=== PATIENT | female | born 1945 | race Caucasian/White ===

== ENCOUNTER 2020-09-17 18:19 | Observation (INO) ==
[2020-09-17] MEDS ORDERED: SODIUM CHLORIDE 0.9% 500 ML IV STA (19:15)
[2020-09-17 20:44] LABS: Basophils % 0.3 % (0.0-0.8); Eosinophils # 0.1 10*3/uL (0.0-0.87); Eosinophils % 1.6 % (0.00-10.9); Hematocrit 30.7 VOL% (35.7-47.0); Hemoglobin 10.1 GM/DL (12.0-16.0); Immature Granulocytes % 0.4 %; Immature Granulocytes Absolute 0.03 #; Lymphocytes # 1.2 10*3/uL (1.4-4.0); Lymphocytes % 16.6 % (21.3-54.2); Mean Corpuscular HGB Conc 32.9 GM/DL (32-36); Mean Platelet Volume 10.3 FL (9.6-12.0); Monocytes % 9.6 % (1.7-12.7); Neutrophils % 71.5 % (38.7-73.9); Platelet Count 209 T/CUMM (130-400); Red Cell Distribution Width 13.4 % (9.3-17.3); White Blood Count 7.4 T/CUMM (4-12)
[2020-09-17 20:51] LABS: Bilirubin,Urine Negative (Negative); Blood, Urine Negative (Negative); Glucose,Urine (UA) Negative (Negative); Ketones,Urine 5 mg/dL (Negative); Mucus,Urine Occasional /LPF (Occasional); Nitrite,Urine Negative (Negative); Protein,Urine Negative; RBC,Urine 1 /HPF (0-4); Squamous Epithelial Cell,Urine Occasional /HPF (0-10); Urine Appearance CLEAR (Clear); Urine Color Yellow (Yellow); Urine Specific Gravity 1.013 (1.001-1.035); Urine Urobilinogen < 2.0 EU/DL (0.2-1.0); WBC,Urine 2 /HPF (0-6)
[2020-09-17 21:02] LABS: Ferritin 168.8 ng/ml (8-252)
[2020-09-17 21:11] LABS: Alanine Aminotransferase < 9 U/L (13-56); Albumin 3.4 G/DL (3.4-5.0); Alkaline Phosphatase 110 U/L (45-117); Aspartate Amino Transferase 20 U/L (0-37); Blood Urea Nitrogen 20 MG/DL (7-18); Carbon Dioxide 25 MMOL/L (21-32); Estimated Glom Filtration Rate 70 ML/MIN; Glucose 95 MG/DL (74-106); Osmolality,Calculated 290.7 MOS/KG (273-304); Potassium 3.1 MMOL/L (3.5-5.1); Sodium 145 MMOL/L (136-145); Total Protein 6.7 G/DL (6.4-8.3); Troponin I < 0.015 NG/ML (0.00-0.045)
[2020-09-17 21:13] LABS: Barbiturates Screen,Urine Negative (Negative); Benzodiazepines Screen,Urine Negative (Negative); Cannabinoid Screen,Urine Negative (Negative); Opiate Screen,Urine Negative (Negative); Phencyclidine Screen,Urine Negative (Negative)
[2020-09-17] MEDS ORDERED: POTASSIUM CHLORIDE 20 MEQ TABLET PO STA (21:18)
[2020-09-17 21:38] LABS: PT Patient Result 11.1 SECS (9.8-11.9)
[2020-09-17 22:07] LABS: Sedimentation Rate-Westergren 29 MM/HR (0-30)
[2020-09-17] MEDS ORDERED: ENOXAPARIN 100 MG/ML SYRINGE SUBCUT STA (22:15)
[2020-09-18] MEDS ORDERED: DEXTROSE 50% 25 GM/50 ML VIAL IV PRN (02:23)
[2020-09-18] MEDS ORDERED: GLUCAGON 1 MG VIAL IM PRN (02:23)
[2020-09-18] MEDS ORDERED: ACETAMINOPHEN 325 MG TABLET PO PRN (02:29)
[2020-09-18] MEDS ORDERED: ONDANSETRON 4 MG/2 ML VIAL IV PRN (02:29)
[2020-09-18] MEDS ORDERED: DOCUSATE SODIUM 100 MG CAPSULE PO PRN (02:29)
[2020-09-18] MEDS ORDERED: POTASSIUM CHLORIDE 20 MEQ TABLET PO PRN (02:35)
[2020-09-18 06:27] LABS: Basophils % 0.7 % (0.0-0.8); Eosinophils # 0.2 10*3/uL (0.0-0.87); Eosinophils % 4.1 % (0.00-10.9); Hematocrit 30.2 VOL% (35.7-47.0); Immature Granulocytes % 0.2 %; Immature Granulocytes Absolute 0.01 #; Lymphocytes # 1.4 10*3/uL (1.4-4.0); Mean Corpuscular HGB Conc 33.1 GM/DL (32-36); Mean Corpuscular Volume 93.8 FL (87-102); Mean Platelet Volume 10.3 FL (9.6-12.0); Monocytes % 8.9 % (1.7-12.7); Neutrophils % 60.1 % (38.7-73.9); Platelet Count 203 T/CUMM (130-400); Red Blood Count 3.22 MC/CUMM (3.8-5.5); Red Cell Distribution Width 13.4 % (9.3-17.3); White Blood Count 5.4 T/CUMM (4-12)
[2020-09-18 06:58] LABS: Alanine Aminotransferase < 6 U/L (13-56); Albumin 3.2 G/DL (3.4-5.0); Alkaline Phosphatase 102 U/L (45-117); Aspartate Amino Transferase 17 U/L (0-37); Blood Urea Nitrogen 15 MG/DL (7-18); Carbon Dioxide 26 MMOL/L (21-32); Estimated Glom Filtration Rate 82 ML/MIN; Glucose 88 MG/DL (74-106); HDL Cholesterol 55 MG/DL (40-60); Osmolality,Calculated 285.8 MOS/KG (273-304); Potassium 3.4 MMOL/L (3.5-5.1); Risk Ratio 3.05; Sodium 144 MMOL/L (136-145); Total Protein 6.3 G/DL (6.4-8.3); Triglycerides 89 MG/DL (2-150); VLDL CHOLESTEROL 17.8 MG/DL
[2020-09-18] MEDS ORDERED: MAGNESIUM HYDROXIDE SUSP 30 ML UDCUP PO STA (11:36)
[2020-09-18] MEDS ORDERED: MAGNESIUM CITRATE 300 ML BOTTLE PO STA (12:55)
[2020-09-18 14:16] VITALS: BP 137/87
[2020-09-18] MEDS ORDERED: ENOXAPARIN 40 MG/0.4 ML SYRINGE SUBCUT SCH (21:00)
== END 2020-09-18 13:41 | disposition home health service (06) ==
LOC: EDBD → EDUNIT# → N.ED 18:19 → N.EDINP 18:19
PROVIDERS: ADMIT Internal Medicine; ATTEND Internal Medicine

== ENCOUNTER 2020-12-31 17:44 | Inpatient (IN) ==
[2020-12-31 18:24] LABS: Basophils # 0.1 10*3/uL (0.0-0.2); Basophils % 0.5 % (0.0-0.8); Eosinophils # 0.1 10*3/uL (0.0-0.87); Eosinophils % 1.2 % (0.00-10.9); Hemoglobin 11.5 GM/DL (12.0-16.0); Immature Granulocytes % 0.3 %; Immature Granulocytes Absolute 0.03 #; Lymphocytes # 1.5 10*3/uL (1.4-4.0); Mean Corpuscular HGB Conc 31.9 GM/DL (32-36); Mean Platelet Volume 9.7 FL (9.6-12.0); Monocytes % 8.1 % (1.7-12.7); Neutrophils % 73.9 % (38.7-73.9); Platelet Count 382 T/CUMM (130-400); Red Blood Count 3.83 MC/CUMM (3.8-5.5); Red Cell Distribution Width 12.6 % (9.3-17.3); White Blood Count 9.3 T/CUMM (4-12)
[2020-12-31 18:37] LABS: Alanine Aminotransferase < 6 U/L (13-56); Albumin 3.4 G/DL (3.4-5.0); Alkaline Phosphatase 99 U/L (45-117); Amylase 42 U/L (25-115); Aspartate Amino Transferase 14 U/L (0-37); Blood Urea Nitrogen 26 MG/DL (7-18); Calcium 9.7 MG/DL (8.5-10.1); Carbon Dioxide 29 MMOL/L (21-32); Estimated Glom Filtration Rate 53 ML/MIN; Glucose 103 MG/DL (74-106); Osmolality,Calculated 287.1 MOS/KG (273-304); Potassium 3.6 MMOL/L (3.5-5.1); Sodium 142 MMOL/L (136-145); Total Protein 7.1 G/DL (6.4-8.2)
[2020-12-31 19:05] LABS: Bilirubin,Urine Negative (Negative); Blood, Urine Negative (Negative); Glucose,Urine (UA) Negative (Negative); Hyaline Casts,Urine 5 /LPF (0-3); Ketones,Urine 5 mg/dL (Negative); Mucus,Urine Few /LPF (Occasional); Nitrite,Urine Negative (Negative); Protein,Urine Negative; RBC,Urine 2 /HPF (0-4); Squamous Epithelial Cell,Urine Occasional /HPF (0-10); Urine Appearance CLEAR (Clear); Urine Color Yellow (Yellow); Urine Specific Gravity 1.023 (1.001-1.035); WBC,Urine 2 /HPF (0-6)
[2020-12-31] MEDS ORDERED: PIPERACILLIN/TAZOBACTAM 3,375 MG in SODIUM CHLORIDE 0.9% 100 ML IV STA (19:46)
[2020-12-31] MEDS ORDERED: SIMETHICONE CHEW 125 MG TABLET PO PRN (20:36)
[2020-12-31] MEDS ORDERED: hydrALAZINE 20 MG/1 ML VIAL IV PRN (20:36)
[2020-12-31] MEDS ORDERED: ONDANSETRON 4 MG/2 ML VIAL IV PRN (20:36)
[2020-12-31] MEDS ORDERED: ACETAMINOPHEN 325 MG TABLET PO PRN (20:36)
[2020-12-31] MEDS ORDERED: LORazepam 2 MG/1 ML VIAL IV STA (20:39)
[2020-12-31] MEDS ORDERED: LORazepam 2 MG/1 ML VIAL ONE (20:40)
[2020-12-31] MEDS: SODIUM CHLORIDE 0.45% 1,000 ML IV SCH (22:31)
[2021-01-01] MEDS: RASAGILINE 0.5 MG TABLET PO SCH ×2 (00:01→21:16)
[2021-01-01] MEDS: DOCUSATE SODIUM 100 MG CAPSULE PO SCH ×3 (00:02→21:18)
[2021-01-01] MEDS: CARBIDOPA/LEVODOPA 25-100 MG TABLET PO SCH ×4 (00:02→21:16)
[2021-01-01] MEDS: ENOXAPARIN 40 MG/0.4 ML SYRINGE SUBCUT SCH ×2 (00:08→21:15)
[2021-01-01] MEDS: PIPERACILLIN/TAZOBACTAM 3,375 MG in SODIUM CHLORIDE 0.9% 100 ML IV SCH ×3 (04:38→21:21)
[2021-01-01 05:44] LABS: Basophils % 0.6 % (0.0-0.8); Eosinophils # 0.2 10*3/uL (0.0-0.87); Eosinophils % 2.1 % (0.00-10.9); Hematocrit 33.8 VOL% (35.7-47.0); Hemoglobin 11.4 GM/DL (12.0-16.0); Immature Granulocytes % 0.3 %; Immature Granulocytes Absolute 0.02 #; Lymphocytes # 1.4 10*3/uL (1.4-4.0); Lymphocytes % 20.6 % (21.3-54.2); Mean Corpuscular HGB Conc 33.7 GM/DL (32-36); Mean Corpuscular Volume 91.6 FL (87-102); Mean Platelet Volume 9.4 FL (9.6-12.0); Monocytes % 10.4 % (1.7-12.7); Platelet Count 333 T/CUMM (130-400); Red Blood Count 3.69 MC/CUMM (3.8-5.5); Red Cell Distribution Width 12.7 % (9.3-17.3)
[2021-01-01 06:09] LABS: Alanine Aminotransferase < 6 U/L (13-56); Albumin 3.1 G/DL (3.4-5.0); Alkaline Phosphatase 91 U/L (45-117); Aspartate Amino Transferase 14 U/L (0-37); Blood Urea Nitrogen 18 MG/DL (7-18); Carbon Dioxide 27 MMOL/L (21-32); Estimated Glom Filtration Rate 69 ML/MIN; Glucose 100 MG/DL (74-106); Osmolality,Calculated 282.3 MOS/KG (273-304); Potassium 3.6 MMOL/L (3.5-5.1); Sodium 141 MMOL/L (136-145); Total Protein 6.5 G/DL (6.4-8.2)
[2021-01-01] MEDS: OLANZapine 2.5 MG TABLET PO SCH ×3 (08:51→21:21)
[2021-01-01] MEDS: MEGESTROL 40 MG TABLET PO SCH (08:51)
[2021-01-01] MEDS: PANTOPRAZOLE 40 MG TABLET PO SCH (08:51)
[2021-01-01] MEDS ORDERED: NON-FORMULARY MEDICATION (Linaclotide [Linzess] 72 mcg Capsule) PO SCH (09:00)
[2021-01-01] MEDS: DONEPEZIL 10 MG TABLET PO SCH (12:18)
[2021-01-01] MEDS: SODIUM CHLORIDE 0.45% 1,000 ML IV SCH ×2 (12:21→21:16)
[2021-01-01] MEDS: MULTIVITAMIN (BEROCCA) TABLET PO SCH (17:05)
[2021-01-01] MEDS ORDERED: CARBIDOPA LEVODOPA PO SCH (21:00)
[2021-01-02] MEDS: PIPERACILLIN/TAZOBACTAM 3,375 MG in SODIUM CHLORIDE 0.9% 100 ML IV SCH ×2 (04:45→14:47)
[2021-01-02] MEDS: SODIUM CHLORIDE 0.45% 1,000 ML IV SCH ×2 (04:45→18:14)
[2021-01-02] MEDS: DOCUSATE SODIUM 100 MG CAPSULE PO SCH (08:49)
[2021-01-02] MEDS: PANTOPRAZOLE 40 MG TABLET PO SCH (08:49)
[2021-01-02] MEDS: CARBIDOPA/LEVODOPA 25-100 MG TABLET PO SCH ×3 (08:50→17:22)
[2021-01-02] MEDS: MEGESTROL 40 MG TABLET PO SCH (08:50)
[2021-01-02] MEDS: OLANZapine 2.5 MG TABLET PO SCH (08:50)
[2021-01-02] MEDS: DONEPEZIL 10 MG TABLET PO SCH (14:47)
[2021-01-02 16:00] VITALS: BP 137/68
[2021-01-02] MEDS: MULTIVITAMIN (BEROCCA) TABLET PO SCH (17:22)
== END 2021-01-02 19:32 | disposition home or self-care (01) | DRG 392 ==
LOC: EDUNIT# → EDBD → N.ED 17:44 → N.EDINP 21:14 → N.5E 21:21
PROVIDERS: ADMIT Internal Medicine; ATTEND Internal Medicine

== ENCOUNTER 2021-03-29 18:53 | Inpatient (IN) ==
[2021-03-29] MEDS ORDERED: ONDANSETRON 4 MG/2 ML VIAL ONE (19:22)
[2021-03-29] MEDS ORDERED: HYDROmorphone 2 MG/1 ML VIAL ONE (19:23)
[2021-03-29] MEDS ORDERED: SODIUM CHLORIDE 0.9% 500 ML IV STA (19:29)
[2021-03-29] MEDS ORDERED: HYDROmorphone 2 MG/1 ML VIAL IV STA ×2 (19:29→22:09)
[2021-03-29] MEDS ORDERED: ONDANSETRON 4 MG/2 ML VIAL IV STA (19:29)
[2021-03-29 19:42] LABS: Basophils # 0.1 10*3/uL (0.0-0.2); Basophils % 0.4 % (0.0-0.8); Eosinophils # 0.2 10*3/uL (0.0-0.87); Eosinophils % 1.2 % (0.00-10.9); Hematocrit 36.3 VOL% (35.7-47.0); Hemoglobin 11.9 GM/DL (12.0-16.0); Immature Granulocytes % 0.7 %; Immature Granulocytes Absolute 0.09 #; Lymphocytes # 2.4 10*3/uL (1.4-4.0); Lymphocytes % 19.2 % (21.3-54.2); Mean Corpuscular HGB Conc 32.8 GM/DL (32-36); Mean Corpuscular Volume 93.3 FL (87-102); Mean Platelet Volume 10.2 FL (9.6-12.0); Monocytes % 9.5 % (1.7-12.7); Platelet Count 247 T/CUMM (130-400); Red Blood Count 3.89 MC/CUMM (3.8-5.5); Red Cell Distribution Width 13.1 % (9.3-17.3); White Blood Count 12.5 T/CUMM (4-12)
[2021-03-29 20:05] LABS: Alanine Aminotransferase 10 U/L (13-56); Albumin 3.7 G/DL (3.4-5.0); Alkaline Phosphatase 100 U/L (45-117); Aspartate Amino Transferase 15 U/L (0-37); Bilirubin,Total < 0.39 MG/DL (0.20-1.00); Blood Urea Nitrogen 28 MG/DL (7-18); Carbon Dioxide 24 MMOL/L (21-32); Estimated Glom Filtration Rate 46 ML/MIN; Glucose 99 MG/DL (74-106); Osmolality,Calculated 293.7 MOS/KG (273-304); Potassium 3.6 MMOL/L (3.5-5.1); Sodium 145 MMOL/L (136-145); Total Protein 6.8 G/DL (6.4-8.2)
[2021-03-29 20:21] LABS: PT Patient Result 10.9 SECS (10.5-12.0)
[2021-03-29 20:32] LABS: Amorphous Crystals,Urine Occasional /HPF (Few); Bilirubin,Urine Negative (Negative); Blood, Urine Negative (Negative); Glucose,Urine (UA) Negative (Negative); Granular Casts,Urine 7 /LPF (0-1); Hyaline Casts,Urine 17 /LPF (0-3); Ketones,Urine 5 mg/dL (Negative); Mucus,Urine Few /LPF (Occasional); Nitrite,Urine Negative (Negative); Protein,Urine 100 MG/DL; Urine Appearance CLOUDY (Clear); Urine Color Amber (Yellow)
[2021-03-29] MEDS ORDERED: LORazepam 2 MG/1 ML VIAL ONE (22:04)
[2021-03-29] MEDS ORDERED: LORazepam 2 MG/1 ML VIAL IV STA (22:09)
[2021-03-29] MEDS ORDERED: ONDANSETRON 4 MG/2 ML VIAL IV PRN (22:14)
[2021-03-29] MEDS ORDERED: GLUCAGON 1 MG VIAL IM PRN (22:14)
[2021-03-29] MEDS ORDERED: DEXTROSE 50% 25 GM/50 ML VIAL IV PRN (22:14)
[2021-03-29] MEDS ORDERED: DICYCLOMINE 20 MG TABLET PO PRN (22:19)
[2021-03-29] MEDS ORDERED: HYDROmorphone 2 MG/1 ML VIAL IV PRN (22:21)
[2021-03-30] MEDS: DONEPEZIL 10 MG TABLET PO SCH ×2 (02:50→21:19)
[2021-03-30] MEDS ORDERED: NALOXONE 0.4 MG/ML VIAL ONE (03:56)
[2021-03-30] MEDS ORDERED: NALOXONE 0.4 MG/ML VIAL IV PRN (03:56)
[2021-03-30 06:15] LABS: Basophils % 0.3 % (0.0-0.8); Eosinophils % 0.2 % (0.00-10.9); Hematocrit 31.9 VOL% (35.7-47.0); Hemoglobin 10.7 GM/DL (12.0-16.0); Immature Granulocytes % 0.4 %; Immature Granulocytes Absolute 0.04 #; Lymphocytes % 10.4 % (21.3-54.2); Mean Corpuscular HGB Conc 33.5 GM/DL (32-36); Mean Corpuscular Volume 92.2 FL (87-102); Mean Platelet Volume 10.4 FL (9.6-12.0); Monocytes % 9.3 % (1.7-12.7); Neutrophils % 79.4 % (38.7-73.9); Platelet Count 187 T/CUMM (130-400); Red Blood Count 3.46 MC/CUMM (3.8-5.5); Red Cell Distribution Width 13.1 % (9.3-17.3); White Blood Count 9.6 T/CUMM (4-12)
[2021-03-30] MEDS ORDERED: fentaNYL 100 MCG/2 ML VIAL ONE (06:32)
[2021-03-30] MEDS ORDERED: MIDAZOLAM 2 MG/2 ML VIAL ONE (06:32)
[2021-03-30 06:35] LABS: Albumin 3.4 G/DL (3.4-5.0); Bilirubin,Total 0.7 MG/DL (0.20-1.00); Calcium 8.8 MG/DL (8.5-10.1); Osmolality,Calculated 294.8 MOS/KG (273-304); Total Protein 6.1 G/DL (6.4-8.2)
[2021-03-30] MEDS ORDERED: DEXAMETHASONE 4 MG/1 ML VIAL ONE (06:43)
[2021-03-30] MEDS ORDERED: LIDOCAINE 1% 5 ML VIAL ONE (06:43)
[2021-03-30] MEDS ORDERED: ROPIVACAINE 0.5% 30 ML VIAL ONE (06:43)
[2021-03-30] MEDS ORDERED: FAMOTIDINE 20 MG/2 ML VIAL IV ONE (07:21)
[2021-03-30] MEDS: CARBIDOPA/LEVODOPA 25-100 MG TABLET PO SCH ×3 (07:47→17:45)
[2021-03-30] MEDS ORDERED: LACTATED RINGERS 1,000 ML IV SCH (08:00)
[2021-03-30] MEDS ORDERED: SUCCINYLCHOLINE 200 MG/10 ML VIAL ONE (08:14)
[2021-03-30] MEDS ORDERED: PHENYLEPHRINE 1 MG/10 ML SYRINGE IV ONE (08:14)
[2021-03-30] MEDS ORDERED: propofoL 200 MG/20 ML VIAL IV ONE (08:14)
[2021-03-30] MEDS ORDERED: ETOMIDATE 40 MG/20 ML VIAL IV ONE (08:14)
[2021-03-30] MEDS ORDERED: ROCURONIUM 50 MG/5 ML VIAL IV ONE (08:14)
[2021-03-30] MEDS ORDERED: SEVOFLURANE 1 UNIT/15 MINUTE INH ONE (08:14)
[2021-03-30] MEDS ORDERED: LIDOCAINE 2% 5 ML VIAL ONE (08:14)
[2021-03-30] MEDS ORDERED: ceFAZolin 1,000 MG VIAL ONE (08:19)
[2021-03-30] MEDS: CYANOCOBALAMIN 500 MCG TABLET PO SCH (08:30)
[2021-03-30] MEDS: COENZYME Q10 100 MG CAPSULE PO SCH ×2 (08:30→21:19)
[2021-03-30] MEDS: MULTIVITAMIN (CENTRUM) TABLET PO SCH (08:30)
[2021-03-30] MEDS: MEGESTROL 40 MG TABLET PO SCH ×2 (08:30→21:19)
[2021-03-30] MEDS: LACTULOSE 20 GM/30 ML UDCUP PO SCH ×3 (08:30→21:55)
[2021-03-30] MEDS ORDERED: GLYCOPYRROLATE 0.4 MG/2 ML VIAL ONE (08:45)
[2021-03-30] MEDS ORDERED: NEOSTIGMINE 10 MG/10 ML VIAL ONE (08:45)
[2021-03-30] MEDS ORDERED: diphenhydrAMINE CAP 25 MG CAPSULE PO PRN (08:59)
[2021-03-30] MEDS ORDERED: MAGNESIUM HYDROXIDE SUSP 30 ML UDCUP PO PRN (08:59)
[2021-03-30] MEDS ORDERED: BISACODYL 10 MG SUPP RECTAL PRN (08:59)
[2021-03-30] MEDS ORDERED: LIDOCAINE 5% PATCH TRANSDERM PRN (09:02)
[2021-03-30] MEDS: RASAGILINE 0.5 MG TABLET PO SCH (11:51)
[2021-03-30] MEDS: MULTIVITAMIN (BEROCCA) TABLET PO SCH (11:52)
[2021-03-30] MEDS: Pimavanserin [Nuplazid] 34 mg capsule PO SCH (11:52)
[2021-03-30] MEDS ORDERED: PYRIDOXINE PO SCH (16:00)
[2021-03-30] MEDS ORDERED: FOLIC ACID PO SCH (16:00)
[2021-03-30] MEDS ORDERED: CYANOCOBALAMIN PO SCH (16:00)
[2021-03-30] MEDS: LORazepam 2 MG/1 ML VIAL IV PRN ×2 (17:43→23:17)
[2021-03-30] MEDS ORDERED: CARBIDOPA/LEVODOPA CR 50-200 MG TABLET PO SCH (21:00)
[2021-03-31] MEDS: HYDROmorphone 2 MG/1 ML VIAL IV PRN ×2 (00:51→06:54)
[2021-03-31] MEDS: ACETAMINOPHEN 325 MG TABLET PO PRN ×2 (03:42→21:09)
[2021-03-31] MEDS: KETOROLAC 15 MG/1 ML VIAL IV SCH ×4 (05:04→23:10)
[2021-03-31 05:51] LABS: Basophils % 0.2 % (0.0-0.8); Hemoglobin 9.5 GM/DL (12.0-16.0); Immature Granulocytes % 0.4 %; Immature Granulocytes Absolute 0.05 #; Lymphocytes # 1.1 10*3/uL (1.4-4.0); Lymphocytes % 9.8 % (21.3-54.2); Mean Corpuscular HGB Conc 32.8 GM/DL (32-36); Mean Corpuscular Volume 93.2 FL (87-102); Mean Platelet Volume 11.1 FL (9.6-12.0); Monocytes % 8.5 % (1.7-12.7); Neutrophils % 81.1 % (38.7-73.9); Platelet Count 157 T/CUMM (130-400); Red Blood Count 3.11 MC/CUMM (3.8-5.5); Red Cell Distribution Width 13.2 % (9.3-17.3); White Blood Count 11.2 T/CUMM (4-12)
[2021-03-31 06:20] LABS: Calcium 8.8 MG/DL (8.5-10.1); Osmolality,Calculated 285.4 MOS/KG (273-304)
[2021-03-31] MEDS: FONDAPARINUX 2.5 MG/0.5 ML SYRINGE SUBCUT SCH (06:38)
[2021-03-31] MEDS: CARBIDOPA/LEVODOPA 25-100 MG TABLET PO SCH ×4 (08:27→16:19)
[2021-03-31] MEDS: LACTULOSE 20 GM/30 ML UDCUP PO SCH ×2 (10:35→21:08)
[2021-03-31] MEDS: MULTIVITAMIN (CENTRUM) TABLET PO SCH (10:35)
[2021-03-31] MEDS: MEGESTROL 40 MG TABLET PO SCH ×2 (10:35→21:07)
[2021-03-31] MEDS: COENZYME Q10 100 MG CAPSULE PO SCH ×2 (10:35→21:07)
[2021-03-31] MEDS: PANTOPRAZOLE 40 MG TABLET PO SCH (10:35)
[2021-03-31] MEDS: MULTIVITAMIN (BEROCCA) TABLET PO SCH (10:35)
[2021-03-31] MEDS: CYANOCOBALAMIN 500 MCG TABLET PO SCH (10:35)
[2021-03-31] MEDS: Pimavanserin [Nuplazid] 34 mg capsule PO SCH (10:39)
[2021-03-31] MEDS: RASAGILINE 0.5 MG TABLET PO SCH (10:51)
[2021-03-31] MEDS ORDERED: HYDROmorphone 2 MG/1 ML VIAL IV PRN (11:26)
[2021-03-31] MEDS: ALBUTEROL/IPRATROPIUM 3 ML NEB RESP TX SCH (19:09)
[2021-03-31] MEDS: DONEPEZIL 10 MG TABLET PO SCH (21:07)
[2021-04-01] MEDS: LORazepam 2 MG/1 ML VIAL IV PRN (00:14)
[2021-04-01] MEDS: ALBUTEROL/IPRATROPIUM 3 ML NEB RESP TX SCH ×4 (00:44→19:16)
[2021-04-01] MEDS: FONDAPARINUX 2.5 MG/0.5 ML SYRINGE SUBCUT SCH (05:03)
[2021-04-01] MEDS: KETOROLAC 15 MG/1 ML VIAL IV SCH ×4 (05:07→23:17)
[2021-04-01] MEDS: CARBIDOPA/LEVODOPA 25-100 MG TABLET PO SCH ×3 (06:07→15:49)
[2021-04-01 06:43] LABS: Basophils % 0.4 % (0.0-0.8); Eosinophils # 0.1 10*3/uL (0.0-0.87); Eosinophils % 1.1 % (0.00-10.9); Hematocrit 24.1 VOL% (35.7-47.0); Hemoglobin 7.7 GM/DL (12.0-16.0); Immature Granulocytes % 0.5 %; Immature Granulocytes Absolute 0.04 #; Lymphocytes % 12.7 % (21.3-54.2); Mean Corpuscular Volume 94.9 FL (87-102); Mean Platelet Volume 11.1 FL (9.6-12.0); Monocytes % 10.5 % (1.7-12.7); Neutrophils % 74.8 % (38.7-73.9); Platelet Count 150 T/CUMM (130-400); Red Blood Count 2.54 MC/CUMM (3.8-5.5); Red Cell Distribution Width 13.4 % (9.3-17.3); White Blood Count 8.2 T/CUMM (4-12)
[2021-04-01 07:56] LABS: Osmolality,Calculated 293.1 MOS/KG (273-304); Potassium 3.8 MMOL/L (3.5-5.1)
[2021-04-01] MEDS: MULTIVITAMIN (BEROCCA) TABLET PO SCH (10:31)
[2021-04-01] MEDS: CYANOCOBALAMIN 500 MCG TABLET PO SCH (10:32)
[2021-04-01] MEDS: COENZYME Q10 100 MG CAPSULE PO SCH ×2 (10:32→20:00)
[2021-04-01] MEDS: PANTOPRAZOLE 40 MG TABLET PO SCH (10:32)
[2021-04-01] MEDS: LACTULOSE 20 GM/30 ML UDCUP PO SCH ×2 (10:32→20:00)
[2021-04-01] MEDS: MEGESTROL 40 MG TABLET PO SCH ×2 (10:32→20:00)
[2021-04-01] MEDS: MULTIVITAMIN (CENTRUM) TABLET PO SCH (10:32)
[2021-04-01] MEDS: RASAGILINE 0.5 MG TABLET PO SCH (10:44)
[2021-04-01] MEDS: Pimavanserin [Nuplazid] 34 mg capsule PO SCH (10:44)
[2021-04-01] MEDS: SODIUM CHLORIDE 0.9% 1,000 ML IV SCH (11:35)
[2021-04-01] MEDS ORDERED: SODIUM CHLORIDE 0.9% 1,000 ML IV PRN (12:07)
[2021-04-01 12:23] LABS: % Iron Saturation 7.6 % (18-50)
[2021-04-01 12:33] LABS: Folate > 24.00 NG/ML (5.38-24.0); Vitamin B12 > 2000 PG/ML (211-911)
[2021-04-01] MEDS ORDERED: ACETAMINOPHEN 325 MG TABLET PO PRN (19:44)
[2021-04-01 19:54] LABS: Hematocrit 25.3 VOL% (35.7-47.0); Hemoglobin 8.3 GM/DL (12.0-16.0)
[2021-04-01] MEDS: DONEPEZIL 10 MG TABLET PO SCH (20:00)
[2021-04-02] MEDS: ALBUTEROL/IPRATROPIUM 3 ML NEB RESP TX SCH ×3 (00:44→13:30)
[2021-04-02 05:42] LABS: Basophils % 0.2 % (0.0-0.8); Eosinophils % 0.4 % (0.00-10.9); Hematocrit 25.5 VOL% (35.7-47.0); Hemoglobin 8.3 GM/DL (12.0-16.0); Immature Granulocytes % 0.3 %; Immature Granulocytes Absolute 0.03 #; Lymphocytes % 10.8 % (21.3-54.2); Mean Corpuscular HGB Conc 32.5 GM/DL (32-36); Mean Corpuscular Volume 92.1 FL (87-102); Mean Platelet Volume 10.8 FL (9.6-12.0); Monocytes % 7.8 % (1.7-12.7); Neutrophils % 80.5 % (38.7-73.9); Platelet Count 132 T/CUMM (130-400); Red Blood Count 2.77 MC/CUMM (3.8-5.5); Red Cell Distribution Width 14.3 % (9.3-17.3)
[2021-04-02 06:04] LABS: Calcium 8.5 MG/DL (8.5-10.1); Osmolality,Calculated 299.4 MOS/KG (273-304); Potassium 3.9 MMOL/L (3.5-5.1)
[2021-04-02 06:05] LABS: Hypochromasia Slight; Microcytosis 1+; Ovalocytes Slight
[2021-04-02 06:06] LABS: Platelet Estimate Adequate
[2021-04-02] MEDS: SODIUM CHLORIDE 0.9% 1,000 ML IV SCH ×2 (06:20→15:30)
[2021-04-02] MEDS: KETOROLAC 15 MG/1 ML VIAL IV SCH ×3 (06:26→17:04)
[2021-04-02] MEDS: CARBIDOPA/LEVODOPA 25-100 MG TABLET PO SCH ×3 (07:33→16:09)
[2021-04-02] MEDS: COENZYME Q10 100 MG CAPSULE PO SCH (09:25)
[2021-04-02] MEDS: PANTOPRAZOLE 40 MG TABLET PO SCH (09:25)
[2021-04-02] MEDS: LACTULOSE 20 GM/30 ML UDCUP PO SCH (09:26)
[2021-04-02] MEDS: MEGESTROL 40 MG TABLET PO SCH (09:26)
[2021-04-02] MEDS: CYANOCOBALAMIN 500 MCG TABLET PO SCH (09:26)
[2021-04-02] MEDS: MULTIVITAMIN (BEROCCA) TABLET PO SCH (09:26)
[2021-04-02] MEDS: MULTIVITAMIN (CENTRUM) TABLET PO SCH (09:26)
[2021-04-02] MEDS ORDERED: TUBERCULIN SKIN TEST 0.1 ML SYRINGE INTRADERM ONE (10:21)
[2021-04-02] MEDS: Pimavanserin [Nuplazid] 34 mg capsule PO SCH (11:33)
[2021-04-02] MEDS: RASAGILINE 0.5 MG TABLET PO SCH (11:33)
[2021-04-02 16:02] VITALS: BP 152/76
[2021-04-02] MEDS ORDERED: CARBIDOPA/LEVODOPA CR 25-100 MG TABLET PO SCH (21:00)
== END 2021-04-02 18:19 | disposition swing bed (61) | DRG 481 ==
LOC: EDBD → EDUNIT# → N.ED 18:53 → SUATTDRO 22:14 → N.EDINP 22:14 → N.3E 03-30 02:39 → N.EDINP 03-30 02:45
PROVIDERS: ADMIT Internal Medicine; ATTEND Internal Medicine

== ENCOUNTER 2021-04-03 14:06 | Inpatient (IN) ==
[2021-04-03] MEDS ORDERED: PIPERACILLIN/TAZOBACTAM 3,375 MG in SODIUM CHLORIDE 0.9% 100 ML IV STA (14:46)
[2021-04-03] MEDS ORDERED: DEXTROSE 50% 25 GM/50 ML VIAL IV PRN (15:44)
[2021-04-03] MEDS ORDERED: GLUCAGON 1 MG VIAL IM PRN (15:44)
[2021-04-03 15:51] LABS: ABG HCO3 21.1 MMOL/L (20-26); ABG Oxygen Saturation 95.2 % (95-100); ABG PCO2 54.3 MM HG (35-48); ABG PH 7.248 (7.35-7.45); ABG PO2 92.4 MM HG (80-95); ABG TCO2 22.2 MMOL/L (23-27)
[2021-04-03 16:28] LABS: Basophils # 0.1 10*3/uL (0.0-0.2); Basophils % 0.3 % (0.0-0.8); Eosinophils # 0.1 10*3/uL (0.0-0.87); Eosinophils % 0.5 % (0.00-10.9); Hematocrit 31.4 VOL% (35.7-47.0); Immature Granulocytes % 0.5 %; Immature Granulocytes Absolute 0.09 #; Lymphocytes # 2.5 10*3/uL (1.4-4.0); Lymphocytes % 12.6 % (21.3-54.2); Mean Corpuscular HGB Conc 31.8 GM/DL (32-36); Mean Corpuscular Volume 96.3 FL (87-102); Mean Platelet Volume 10.4 FL (9.6-12.0); Neutrophils % 77.1 % (38.7-73.9); Platelet Count 262 T/CUMM (130-400); Red Blood Count 3.26 MC/CUMM (3.8-5.5); Red Cell Distribution Width 14.1 % (9.3-17.3); White Blood Count 19.5 T/CUMM (4-12)
[2021-04-03 16:47] LABS: Alanine Aminotransferase < 6 U/L (13-56); Albumin 3.4 G/DL (3.4-5.0); Alkaline Phosphatase 88 U/L (45-117); Aspartate Amino Transferase 22 U/L (0-37); Blood Urea Nitrogen 27 MG/DL (7-18); Calcium 9.3 MG/DL (8.5-10.1); Carbon Dioxide 25 MMOL/L (21-32); Estimated Glom Filtration Rate 48 ML/MIN; Glucose 140 MG/DL (74-106); Osmolality,Calculated 289.1 MOS/KG (273-304); Potassium 4.2 MMOL/L (3.5-5.1); Sodium 142 MMOL/L (136-145); Total Protein 7.1 G/DL (6.4-8.2)
[2021-04-03] MEDS ORDERED: KETOROLAC 30 MG/1 ML VIAL ONE (19:19)
[2021-04-03] MEDS ORDERED: KETOROLAC 30 MG/1 ML VIAL IV STA (19:43)
[2021-04-03] MEDS: ALBUTEROL/IPRATROPIUM 3 ML NEB RESP TX SCH (19:58)
[2021-04-03] MEDS ORDERED: CARBIDOPA/LEVODOPA CR 50-200 MG TABLET PO SCH (21:00)
[2021-04-03] MEDS: DONEPEZIL 10 MG TABLET PO SCH (22:28)
[2021-04-03] MEDS: LACTULOSE 20 GM/30 ML UDCUP PO SCH (22:29)
[2021-04-03] MEDS: MEGESTROL 40 MG TABLET PO SCH (22:29)
[2021-04-03] MEDS: CARBIDOPA/LEVODOPA CR 25-100 MG TABLET PO SCH (22:29)
[2021-04-03] MEDS: PIPERACILLIN/TAZOBACTAM 3,375 MG in SODIUM CHLORIDE 0.9% 100 ML IV SCH (23:00)
[2021-04-03] MEDS: ENOXAPARIN 40 MG/0.4 ML SYRINGE SUBCUT SCH (23:12)
[2021-04-04] MEDS: ALBUTEROL/IPRATROPIUM 3 ML NEB RESP TX SCH ×4 (00:14→20:51)
[2021-04-04] MEDS ORDERED: KETOROLAC 30 MG/1 ML VIAL IV STA (01:15)
[2021-04-04 04:15] LABS: Basophils % 0.1 % (0.0-0.8); Hematocrit 26.5 VOL% (35.7-47.0); Hemoglobin 8.6 GM/DL (12.0-16.0); Immature Granulocytes % 0.3 %; Immature Granulocytes Absolute 0.05 #; Lymphocytes # 0.5 10*3/uL (1.4-4.0); Lymphocytes % 3.5 % (21.3-54.2); Mean Corpuscular HGB Conc 32.5 GM/DL (32-36); Mean Corpuscular Volume 93.3 FL (87-102); Mean Platelet Volume 10.9 FL (9.6-12.0); Monocytes % 5.4 % (1.7-12.7); Neutrophils % 90.7 % (38.7-73.9); Platelet Count 212 T/CUMM (130-400); Red Blood Count 2.84 MC/CUMM (3.8-5.5); Red Cell Distribution Width 14.1 % (9.3-17.3); White Blood Count 14.5 T/CUMM (4-12)
[2021-04-04] MEDS ORDERED: ACETAMINOPHEN 650 MG SUPP RECTAL STA (04:17)
[2021-04-04 04:24] LABS: Calcium 9.1 MG/DL (8.5-10.1); Osmolality,Calculated 302.4 MOS/KG (273-304); Potassium 4.4 MMOL/L (3.5-5.1)
[2021-04-04 04:36] LABS: Band Neutrophils 3 % (0-10); Hypochromasia 1+; Lymphocytes 2 % (20-55); Microcytosis 1+; Platelet Estimate Adequate; Segmented Neutrophils 91 % (50-85); Total Cells Counted 100
[2021-04-04] MEDS: PIPERACILLIN/TAZOBACTAM 3,375 MG in SODIUM CHLORIDE 0.9% 100 ML IV SCH ×3 (06:49→22:35)
[2021-04-04] MEDS: MEGESTROL 40 MG TABLET PO SCH ×2 (09:05→21:23)
[2021-04-04] MEDS: LACTULOSE 20 GM/30 ML UDCUP PO SCH ×2 (09:05→21:23)
[2021-04-04] MEDS: CARBIDOPA/LEVODOPA 25-100 MG TABLET PO SCH ×3 (09:05→16:03)
[2021-04-04] MEDS: RASAGILINE 1 MG PO SCH (10:29)
[2021-04-04] MEDS: Pimavanserin [Nuplazid] 34 mg capsule PO SCH (10:29)
[2021-04-04] MEDS: DEXTROSE 5% 1,000 ML IV SCH ×2 (11:16→22:33)
[2021-04-04] MEDS: ACETAMINOPHEN 650 MG SUPP RECTAL PRN (16:03)
[2021-04-04] MEDS: MULTIVITAMIN (BEROCCA) TABLET PO SCH (16:03)
[2021-04-04] MEDS: DONEPEZIL 10 MG TABLET PO SCH (21:23)
[2021-04-04] MEDS: CARBIDOPA/LEVODOPA CR 25-100 MG TABLET PO SCH (21:24)
[2021-04-04] MEDS: ENOXAPARIN 40 MG/0.4 ML SYRINGE SUBCUT SCH (22:32)
[2021-04-05] MEDS: ALBUTEROL/IPRATROPIUM 3 ML NEB RESP TX SCH ×4 (00:07→20:50)
[2021-04-05] MEDS: PIPERACILLIN/TAZOBACTAM 3,375 MG in SODIUM CHLORIDE 0.9% 100 ML IV SCH ×3 (07:20→23:22)
[2021-04-05] MEDS: ACETAMINOPHEN 650 MG SUPP RECTAL PRN ×2 (07:21→17:30)
[2021-04-05] MEDS: LACTULOSE 20 GM/30 ML UDCUP PO SCH ×2 (08:05→21:20)
[2021-04-05] MEDS: MEGESTROL 40 MG TABLET PO SCH ×2 (08:05→21:21)
[2021-04-05] MEDS: CARBIDOPA/LEVODOPA 25-100 MG TABLET PO SCH ×3 (08:05→17:44)
[2021-04-05 08:21] LABS: Basophils % 0.1 % (0.0-0.8); Eosinophils % 0.3 % (0.00-10.9); Hematocrit 22.2 VOL% (35.7-47.0); Hemoglobin 7.3 GM/DL (12.0-16.0); Immature Granulocytes % 0.4 %; Immature Granulocytes Absolute 0.04 #; Lymphocytes # 0.6 10*3/uL (1.4-4.0); Lymphocytes % 6.2 % (21.3-54.2); Mean Corpuscular HGB Conc 32.9 GM/DL (32-36); Mean Corpuscular Volume 94.1 FL (87-102); Mean Platelet Volume 10.6 FL (9.6-12.0); Monocytes % 6.3 % (1.7-12.7); Neutrophils % 86.7 % (38.7-73.9); Platelet Count 173 T/CUMM (130-400); Red Blood Count 2.36 MC/CUMM (3.8-5.5); Red Cell Distribution Width 14.4 % (9.3-17.3); White Blood Count 8.9 T/CUMM (4-12)
[2021-04-05 08:33] LABS: Calcium 8.7 MG/DL (8.5-10.1); Osmolality,Calculated 297.7 MOS/KG (273-304); Potassium 3.7 MMOL/L (3.5-5.1)
[2021-04-05] MEDS ORDERED: TUBERCULIN SKIN TEST 0.1 ML SYRINGE INTRADERM ONE (08:38)
[2021-04-05 08:49] LABS: Band Neutrophils 16 % (0-10); Lymphocytes 8 % (20-55); Platelet Estimate Normal; Segmented Neutrophils 71 % (50-85); Total Cells Counted 100
[2021-04-05 08:50] LABS: Anisocytosis 2+; Ovalocytes Few
[2021-04-05] MEDS: Pimavanserin [Nuplazid] 34 mg capsule PO SCH (10:28)
[2021-04-05] MEDS: RASAGILINE 1 MG PO SCH (10:28)
[2021-04-05] MEDS ORDERED: BISACODYL 10 MG SUPP RECTAL PRN (11:40)
[2021-04-05] MEDS: DEXTROSE 5% 1,000 ML IV SCH ×2 (14:57→15:05)
[2021-04-05] MEDS: MULTIVITAMIN (BEROCCA) TABLET PO SCH (15:06)
[2021-04-05] MEDS: DONEPEZIL 10 MG TABLET PO SCH (21:20)
[2021-04-05] MEDS: CARBIDOPA/LEVODOPA CR 25-100 MG TABLET PO SCH (21:20)
[2021-04-05] MEDS: ENOXAPARIN 40 MG/0.4 ML SYRINGE SUBCUT SCH (21:20)
[2021-04-06] MEDS: ALBUTEROL/IPRATROPIUM 3 ML NEB RESP TX SCH ×4 (01:00→19:27)
[2021-04-06 04:55] LABS: ABG Base Excess 0.2 MMOL/L (-2.5-2.5); ABG HCO3 24.6 MMOL/L (20-26); ABG Oxygen Saturation 98.2 % (95-100); ABG PCO2 34.6 MM HG (35-48); ABG PH 7.444 (7.35-7.45); ABG TCO2 21.1 MMOL/L (23-27); Allen Test Positive
[2021-04-06 05:50] LABS: Osmolality,Calculated 294.7 MOS/KG (273-304); Potassium 3.6 MMOL/L (3.5-5.1)
[2021-04-06] MEDS: CARBIDOPA/LEVODOPA 25-100 MG TABLET PO SCH ×3 (06:06→15:51)
[2021-04-06] MEDS: PIPERACILLIN/TAZOBACTAM 3,375 MG in SODIUM CHLORIDE 0.9% 100 ML IV SCH ×3 (06:06→22:28)
[2021-04-06 08:17] LABS: Basophils % 0.1 % (0.0-0.8); Eosinophils % 0.3 % (0.00-10.9); Hematocrit 24.3 VOL% (35.7-47.0); Hemoglobin 7.8 GM/DL (12.0-16.0); Immature Granulocytes % 0.8 %; Immature Granulocytes Absolute 0.09 #; Lymphocytes # 0.4 10*3/uL (1.4-4.0); Lymphocytes % 3.1 % (21.3-54.2); Mean Corpuscular HGB Conc 32.1 GM/DL (32-36); Mean Corpuscular Volume 94.9 FL (87-102); Monocytes % 6.2 % (1.7-12.7); Neutrophils % 89.5 % (38.7-73.9); Platelet Count 232 T/CUMM (130-400); Red Blood Count 2.56 MC/CUMM (3.8-5.5); Red Cell Distribution Width 14.1 % (9.3-17.3); White Blood Count 11.1 T/CUMM (4-12)
[2021-04-06] MEDS: LACTULOSE 20 GM/30 ML UDCUP PO SCH ×2 (08:36→22:27)
[2021-04-06] MEDS: MEGESTROL 40 MG TABLET PO SCH ×2 (08:36→22:26)
[2021-04-06 08:37] LABS: Band Neutrophils 8 % (0-10); Hypochromasia 1+; Lymphocytes 3 % (20-55); Microcytosis 1+; Segmented Neutrophils 83 % (50-85); Total Cells Counted 100
[2021-04-06 08:38] LABS: Platelet Estimate Normal
[2021-04-06] MEDS: DEXTROSE 5% 1,000 ML IV SCH ×2 (11:11→16:56)
[2021-04-06] MEDS: RASAGILINE 1 MG PO SCH (11:34)
[2021-04-06] MEDS: Pimavanserin [Nuplazid] 34 mg capsule PO SCH (11:34)
[2021-04-06] MEDS: ACETAMINOPHEN 325 MG TABLET PO PRN ×2 (15:51→22:32)
[2021-04-06] MEDS: MULTIVITAMIN (BEROCCA) TABLET PO SCH (15:51)
[2021-04-06] MEDS: DONEPEZIL 10 MG TABLET PO SCH (22:27)
[2021-04-06] MEDS: ENOXAPARIN 40 MG/0.4 ML SYRINGE SUBCUT SCH (22:27)
[2021-04-06] MEDS: CARBIDOPA/LEVODOPA CR 25-100 MG TABLET PO SCH (22:27)
[2021-04-07] MEDS: ALBUTEROL/IPRATROPIUM 3 ML NEB RESP TX SCH ×4 (00:49→20:39)
[2021-04-07 05:09] LABS: Basophils % 0.2 % (0.0-0.8); Eosinophils # 0.1 10*3/uL (0.0-0.87); Eosinophils % 0.8 % (0.00-10.9); Hematocrit 22.3 VOL% (35.7-47.0); Hemoglobin 7.1 GM/DL (12.0-16.0); Immature Granulocytes % 0.6 %; Immature Granulocytes Absolute 0.06 #; Lymphocytes # 0.6 10*3/uL (1.4-4.0); Lymphocytes % 5.9 % (21.3-54.2); Mean Corpuscular HGB Conc 31.8 GM/DL (32-36); Mean Corpuscular Volume 94.5 FL (87-102); Mean Platelet Volume 10.7 FL (9.6-12.0); Neutrophils % 84.5 % (38.7-73.9); Platelet Count 249 T/CUMM (130-400); Red Blood Count 2.36 MC/CUMM (3.8-5.5); Red Cell Distribution Width 13.8 % (9.3-17.3); White Blood Count 9.7 T/CUMM (4-12)
[2021-04-07 05:36] LABS: Hypochromasia 1+; Lymphocytes 5 % (20-55); Microcytosis 1+; Platelet Estimate Adequate; Segmented Neutrophils 85 % (50-85); Total Cells Counted 100
[2021-04-07 05:45] LABS: Osmolality,Calculated 293.8 MOS/KG (273-304); Potassium 3.5 MMOL/L (3.5-5.1)
[2021-04-07] MEDS: DEXTROSE 5% 1,000 ML IV SCH ×3 (06:07→14:00)
[2021-04-07] MEDS: PIPERACILLIN/TAZOBACTAM 3,375 MG in SODIUM CHLORIDE 0.9% 100 ML IV SCH ×3 (07:32→23:17)
[2021-04-07] MEDS: CARBIDOPA/LEVODOPA CR 25-100 MG TABLET PO SCH ×2 (07:33→20:30)
[2021-04-07] MEDS: CARBIDOPA/LEVODOPA 25-100 MG TABLET PO SCH ×3 (07:46→16:54)
[2021-04-07] MEDS ORDERED: SODIUM CHLORIDE 0.9% 1,000 ML IV PRN (07:54)
[2021-04-07 08:19] LABS: Folate 14.49 NG/ML (5.38-24.0); Vitamin B12 1864 PG/ML (211-911)
[2021-04-07 08:20] LABS: Basophils % 0.2 % (0.0-0.8); Eosinophils # 0.1 10*3/uL (0.0-0.87); Eosinophils % 0.9 % (0.00-10.9); Hematocrit 22.5 VOL% (35.7-47.0); Hemoglobin 7.2 GM/DL (12.0-16.0); Immature Granulocytes % 0.6 %; Immature Granulocytes Absolute 0.06 #; Lymphocytes # 0.6 10*3/uL (1.4-4.0); Lymphocytes % 5.7 % (21.3-54.2); Mean Corpuscular Volume 94.9 FL (87-102); Mean Platelet Volume 11.1 FL (9.6-12.0); Monocytes % 8.4 % (1.7-12.7); Neutrophils % 84.2 % (38.7-73.9); Platelet Count 255 T/CUMM (130-400); Red Blood Count 2.37 MC/CUMM (3.8-5.5); Red Cell Distribution Width 14.1 % (9.3-17.3); White Blood Count 9.9 T/CUMM (4-12)
[2021-04-07 09:00] LABS: Eosinophils 1 % (0-10); Lymphocytes 3 % (20-55); Platelet Estimate Adequate; Segmented Neutrophils 92 % (50-85); Total Cells Counted 100
[2021-04-07 09:01] LABS: Hypochromasia 1+; Microcytosis 1+
[2021-04-07 09:24] LABS: Sedimentation Rate-Westergren 135 MM/HR (0-30)
[2021-04-07] MEDS: MEGESTROL 40 MG TABLET PO SCH ×2 (09:45→20:29)
[2021-04-07] MEDS: ACETAMINOPHEN 325 MG TABLET PO PRN ×2 (09:45→16:54)
[2021-04-07] MEDS: LACTULOSE 20 GM/30 ML UDCUP PO SCH ×2 (09:45→20:33)
[2021-04-07] MEDS: RASAGILINE 1 MG PO SCH (11:41)
[2021-04-07] MEDS: Pimavanserin [Nuplazid] 34 mg capsule PO SCH (11:41)
[2021-04-07] MEDS: MULTIVITAMIN (BEROCCA) TABLET PO SCH (16:53)
[2021-04-07 17:20] LABS: Hematocrit 29.3 VOL% (35.7-47.0)
[2021-04-07 17:24] LABS: Hemoglobin 9.3 GM/DL (12.0-16.0)
[2021-04-07] MEDS: DONEPEZIL 10 MG TABLET PO SCH (20:29)
[2021-04-07] MEDS: ENOXAPARIN 40 MG/0.4 ML SYRINGE SUBCUT SCH (20:31)
[2021-04-08] MEDS: ALBUTEROL/IPRATROPIUM 3 ML NEB RESP TX SCH ×4 (01:21→19:29)
[2021-04-08 05:44] LABS: Basophils % 0.2 % (0.0-0.8); Eosinophils # 0.2 10*3/uL (0.0-0.87); Eosinophils % 1.5 % (0.00-10.9); Hematocrit 25.1 VOL% (35.7-47.0); Hemoglobin 8.2 GM/DL (12.0-16.0); Lymphocytes # 0.6 10*3/uL (1.4-4.0); Lymphocytes % 6.2 % (21.3-54.2); Mean Corpuscular HGB Conc 32.7 GM/DL (32-36); Monocytes % 7.7 % (1.7-12.7); Neutrophils % 83.4 % (38.7-73.9); Platelet Count 280 T/CUMM (130-400); Red Cell Distribution Width 14.1 % (9.3-17.3); White Blood Count 10.3 T/CUMM (4-12)
[2021-04-08 05:59] LABS: Osmolality,Calculated 293.7 MOS/KG (273-304); Potassium 3.6 MMOL/L (3.5-5.1)
[2021-04-08] MEDS: PIPERACILLIN/TAZOBACTAM 3,375 MG in SODIUM CHLORIDE 0.9% 100 ML IV SCH ×3 (07:21→23:31)
[2021-04-08] MEDS: CARBIDOPA/LEVODOPA 25-100 MG TABLET PO SCH ×3 (07:23→16:04)
[2021-04-08] MEDS: LACTULOSE 20 GM/30 ML UDCUP PO SCH ×2 (10:15→20:51)
[2021-04-08] MEDS: MEGESTROL 40 MG TABLET PO SCH ×2 (10:24→20:54)
[2021-04-08] MEDS: ACETAMINOPHEN 325 MG TABLET PO PRN ×2 (11:15→20:54)
[2021-04-08] MEDS: Pimavanserin [Nuplazid] 34 mg capsule PO SCH (11:43)
[2021-04-08] MEDS: RASAGILINE 1 MG PO SCH (11:43)
[2021-04-08] MEDS: MULTIVITAMIN (BEROCCA) TABLET PO SCH (16:04)
[2021-04-08] MEDS: DONEPEZIL 10 MG TABLET PO SCH (20:54)
[2021-04-08] MEDS: CARBIDOPA/LEVODOPA CR 25-100 MG TABLET PO SCH (20:54)
[2021-04-08] MEDS: ENOXAPARIN 40 MG/0.4 ML SYRINGE SUBCUT SCH (20:55)
[2021-04-08] MEDS: DEXTROSE 5% 1,000 ML IV SCH ×3 (21:33→22:41)
[2021-04-09] MEDS: ALBUTEROL/IPRATROPIUM 3 ML NEB RESP TX SCH ×4 (01:47→20:25)
[2021-04-09 05:10] LABS: Basophils % 0.2 % (0.0-0.8); Eosinophils # 0.2 10*3/uL (0.0-0.87); Eosinophils % 1.6 % (0.00-10.9); Hematocrit 26.8 VOL% (35.7-47.0); Hemoglobin 8.3 GM/DL (12.0-16.0); Immature Granulocytes % 1.3 %; Immature Granulocytes Absolute 0.12 #; Lymphocytes # 0.8 10*3/uL (1.4-4.0); Lymphocytes % 8.6 % (21.3-54.2); Mean Corpuscular Volume 94.4 FL (87-102); Mean Platelet Volume 10.8 FL (9.6-12.0); Neutrophils % 79.3 % (38.7-73.9); Platelet Count 300 T/CUMM (130-400); Red Blood Count 2.84 MC/CUMM (3.8-5.5); White Blood Count 9.6 T/CUMM (4-12)
[2021-04-09 05:33] LABS: Eosinophils 2 % (0-10); Lymphocytes 6 % (20-55); Platelet Estimate Normal; Segmented Neutrophils 87 % (50-85); Total Cells Counted 100
[2021-04-09 05:46] LABS: Calcium 9.1 MG/DL (8.5-10.1); Osmolality,Calculated 292.7 MOS/KG (273-304); Potassium 3.7 MMOL/L (3.5-5.1)
[2021-04-09] MEDS: PIPERACILLIN/TAZOBACTAM 3,375 MG in SODIUM CHLORIDE 0.9% 100 ML IV SCH ×3 (06:14→22:19)
[2021-04-09] MEDS: DEXTROSE 5% 1,000 ML IV SCH ×3 (06:36→22:16)
[2021-04-09] MEDS: CARBIDOPA/LEVODOPA 25-100 MG TABLET PO SCH ×3 (06:42→15:23)
[2021-04-09] MEDS: MEGESTROL 40 MG TABLET PO SCH ×2 (09:02→20:59)
[2021-04-09] MEDS: LACTULOSE 20 GM/30 ML UDCUP PO SCH ×3 (09:02→20:59)
[2021-04-09 10:10] LABS: Hemoglobin A1 (Alkaline) 97.8 % (96.5-98.5); Hemoglobin A2 (Alkaline) 2.2 % (1.5-3.5)
[2021-04-09] MEDS: Pimavanserin [Nuplazid] 34 mg capsule PO SCH (11:04)
[2021-04-09] MEDS: RASAGILINE 1 MG PO SCH (11:04)
[2021-04-09] MEDS: ACETAMINOPHEN 325 MG TABLET PO PRN (13:05)
[2021-04-09] MEDS: MULTIVITAMIN (BEROCCA) TABLET PO SCH (15:23)
[2021-04-09] MEDS ORDERED: SODIUM PHOSPHATE INJ 15 MMOL in SODIUM CHLORIDE 0.9% 250 ML IV ONE (15:45)
[2021-04-09] MEDS: MELATONIN 3 MG TABLET PO PRN (20:58)
[2021-04-09] MEDS: CARBIDOPA/LEVODOPA CR 25-100 MG TABLET PO SCH (20:59)
[2021-04-09] MEDS: ENOXAPARIN 40 MG/0.4 ML SYRINGE SUBCUT SCH (20:59)
[2021-04-09] MEDS: DONEPEZIL 10 MG TABLET PO SCH (20:59)
[2021-04-10] MEDS: ALBUTEROL/IPRATROPIUM 3 ML NEB RESP TX SCH ×4 (01:25→19:29)
[2021-04-10] MEDS: PIPERACILLIN/TAZOBACTAM 3,375 MG in SODIUM CHLORIDE 0.9% 100 ML IV SCH ×2 (06:00→15:32)
[2021-04-10] MEDS: CARBIDOPA/LEVODOPA 25-100 MG TABLET PO SCH ×3 (06:01→15:32)
[2021-04-10] MEDS: DEXTROSE 5% 1,000 ML IV SCH ×2 (06:01→14:59)
[2021-04-10 07:47] LABS: Basophils % 0.3 % (0.0-0.8); Eosinophils # 0.1 10*3/uL (0.0-0.87); Eosinophils % 0.9 % (0.00-10.9); Hemoglobin 8.4 GM/DL (12.0-16.0); Immature Granulocytes % 1.2 %; Immature Granulocytes Absolute 0.12 #; Lymphocytes # 0.9 10*3/uL (1.4-4.0); Lymphocytes % 8.7 % (21.3-54.2); Mean Corpuscular HGB Conc 31.1 GM/DL (32-36); Mean Corpuscular Volume 94.1 FL (87-102); Mean Platelet Volume 10.9 FL (9.6-12.0); Monocytes % 8.5 % (1.7-12.7); Neutrophils % 80.4 % (38.7-73.9); Platelet Count 359 T/CUMM (130-400); Red Blood Count 2.87 MC/CUMM (3.8-5.5); Red Cell Distribution Width 14.1 % (9.3-17.3); White Blood Count 10.4 T/CUMM (4-12)
[2021-04-10 08:03] LABS: Calcium 8.9 MG/DL (8.5-10.1); Osmolality,Calculated 283.3 MOS/KG (273-304); Potassium 3.7 MMOL/L (3.5-5.1)
[2021-04-10] MEDS: MEGESTROL 40 MG TABLET PO SCH ×2 (08:31→21:35)
[2021-04-10] MEDS: LACTULOSE 20 GM/30 ML UDCUP PO SCH ×2 (08:32→21:35)
[2021-04-10] MEDS: Pimavanserin [Nuplazid] 34 mg capsule PO SCH (10:15)
[2021-04-10] MEDS: RASAGILINE 1 MG PO SCH (10:15)
[2021-04-10] MEDS: MULTIVITAMIN (BEROCCA) TABLET PO SCH (15:32)
[2021-04-10] MEDS: MELATONIN 3 MG TABLET PO PRN (21:34)
[2021-04-10] MEDS: DONEPEZIL 10 MG TABLET PO SCH (21:35)
[2021-04-10] MEDS: CARBIDOPA/LEVODOPA CR 25-100 MG TABLET PO SCH (21:35)
[2021-04-10] MEDS: ENOXAPARIN 40 MG/0.4 ML SYRINGE SUBCUT SCH (21:35)
[2021-04-11] MEDS: ALBUTEROL/IPRATROPIUM 3 ML NEB RESP TX SCH ×4 (00:30→19:00)
[2021-04-11] MEDS: DEXTROSE 5% 1,000 ML IV SCH ×2 (03:10→22:31)
[2021-04-11 06:06] LABS: Basophils % 0.1 % (0.0-0.8); Eosinophils # 0.2 10*3/uL (0.0-0.87); Eosinophils % 2.6 % (0.00-10.9); Hematocrit 26.6 VOL% (35.7-47.0); Hemoglobin 8.4 GM/DL (12.0-16.0); Immature Granulocytes % 1.1 %; Immature Granulocytes Absolute 0.09 #; Lymphocytes # 0.9 10*3/uL (1.4-4.0); Lymphocytes % 10.6 % (21.3-54.2); Mean Corpuscular HGB Conc 31.6 GM/DL (32-36); Mean Corpuscular Volume 93.3 FL (87-102); Mean Platelet Volume 10.8 FL (9.6-12.0); Monocytes % 9.7 % (1.7-12.7); Neutrophils % 75.9 % (38.7-73.9); Platelet Count 387 T/CUMM (130-400); Red Blood Count 2.85 MC/CUMM (3.8-5.5); Red Cell Distribution Width 14.1 % (9.3-17.3); White Blood Count 8.1 T/CUMM (4-12)
[2021-04-11] MEDS: CARBIDOPA/LEVODOPA 25-100 MG TABLET PO SCH ×3 (06:08→15:36)
[2021-04-11 06:28] LABS: Calcium 9.2 MG/DL (8.5-10.1); Osmolality,Calculated 284.3 MOS/KG (273-304); Potassium 3.9 MMOL/L (3.5-5.1)
[2021-04-11] MEDS: MEGESTROL 40 MG TABLET PO SCH ×2 (08:41→20:55)
[2021-04-11] MEDS: LACTULOSE 20 GM/30 ML UDCUP PO SCH ×2 (09:31→20:55)
[2021-04-11] MEDS: RASAGILINE 1 MG PO SCH (12:19)
[2021-04-11] MEDS: Pimavanserin [Nuplazid] 34 mg capsule PO SCH (12:19)
[2021-04-11] MEDS: MULTIVITAMIN (BEROCCA) TABLET PO SCH (15:36)
[2021-04-11] MEDS: MELATONIN 3 MG TABLET PO PRN (20:54)
[2021-04-11] MEDS: DONEPEZIL 10 MG TABLET PO SCH (20:55)
[2021-04-11] MEDS: CARBIDOPA/LEVODOPA CR 25-100 MG TABLET PO SCH (20:55)
[2021-04-11] MEDS: ENOXAPARIN 40 MG/0.4 ML SYRINGE SUBCUT SCH (20:55)
[2021-04-12] MEDS: ALBUTEROL/IPRATROPIUM 3 ML NEB RESP TX SCH ×3 (02:00→14:35)
[2021-04-12 04:57] LABS: Basophils % 0.2 % (0.0-0.8); Eosinophils # 0.1 10*3/uL (0.0-0.87); Eosinophils % 1.2 % (0.00-10.9); Hematocrit 26.1 VOL% (35.7-47.0); Hemoglobin 8.5 GM/DL (12.0-16.0); Immature Granulocytes % 0.9 %; Immature Granulocytes Absolute 0.08 #; Lymphocytes # 0.8 10*3/uL (1.4-4.0); Mean Corpuscular HGB Conc 32.6 GM/DL (32-36); Mean Corpuscular Volume 91.9 FL (87-102); Mean Platelet Volume 10.6 FL (9.6-12.0); Monocytes % 7.4 % (1.7-12.7); Neutrophils % 81.3 % (38.7-73.9); Platelet Count 448 T/CUMM (130-400); Red Blood Count 2.84 MC/CUMM (3.8-5.5); White Blood Count 9.3 T/CUMM (4-12)
[2021-04-12 05:14] LABS: Calcium 9.6 MG/DL (8.5-10.1); Osmolality,Calculated 279.5 MOS/KG (273-304); Potassium 4.1 MMOL/L (3.5-5.1)
[2021-04-12] MEDS: CARBIDOPA/LEVODOPA 25-100 MG TABLET PO SCH ×3 (06:25→16:40)
[2021-04-12] MEDS: DEXTROSE 5% 1,000 ML IV SCH (07:36)
[2021-04-12] MEDS: ACETAMINOPHEN 325 MG TABLET PO PRN (09:43)
[2021-04-12] MEDS: MEGESTROL 40 MG TABLET PO SCH (09:43)
[2021-04-12] MEDS: LACTULOSE 20 GM/30 ML UDCUP PO SCH (09:44)
[2021-04-12] MEDS: RASAGILINE 1 MG PO SCH (10:59)
[2021-04-12] MEDS: Pimavanserin [Nuplazid] 34 mg capsule PO SCH (10:59)
[2021-04-12] MEDS: MULTIVITAMIN (BEROCCA) TABLET PO SCH (16:40)
[2021-04-12 17:40] VITALS: BP 162/99
== END 2021-04-12 20:03 | disposition hospice, home (50) | DRG 871 ==
LOC: N.ED 14:06 → N.EDINP 15:44 → SUATTDRO 15:44 → N.EDINP 04-04 07:49 → N.3E 04-04 07:56
PROVIDERS: ADMIT Internal Medicine; ATTEND Internal Medicine